=== PATIENT | female | born 1965 | race Two or more races ===

== ENCOUNTER 2022-02-05 07:01 | Outpatient (CLI) | payer OTHER ==
[~2022-02-05] VITALS: Ht 157.5 cm; Wt 68.9 kg
== END 2022-02-05 07:04 | disposition home or self-care (01) ==
LOC: LAB 07:01
PROVIDERS: ATTEND Orthopaedic Surgery
DX: D64.9 Anemia, unspecified (principal); E88.9 Metabolic disorder, unspecified; D68.8 Other specified coagulation defects; N39.0 Urinary tract infection, site not specified; E11.9 Type 2 diabetes mellitus without complications; Z76.89 Persons encountering health services in other specified circumstances; I10 Essential (primary) hypertension

== ENCOUNTER 2022-02-14 11:30 | Inpatient (IN) | payer OTHER ==
[~2022-02-14] VITALS: Ht 157.5 cm; Wt 69.4 kg
[2022-02-14] MEDS ORDERED: LOSARTAN-HCTZ1 EAC2 PO (14:56)
[2022-02-14] MEDS ORDERED: SYNTHROID112 MCG PO (14:56)
[2022-02-20] MEDS ORDERED: ROSUVASTATIN CAL5 MG (08:29)
[2022-02-20] MEDS ORDERED: XARELTO10 M1 (08:29)
[2022-02-20] MEDS ORDERED: GABAPENTIN100 M2 (08:29)
[2022-02-20] MEDS ORDERED: CELECOXIB200 MG (08:29)
== END 2022-02-23 14:50 | DRG 470 ==
LOC: SURH 02-19 07:30 → SURG 02-20 06:00 → O/R 02-20 06:00 → SURG 02-20 19:56
PROVIDERS: Orthopaedic Surgery; ADMIT Internal Medicine; ATTEND Internal Medicine
PROC: 0SRC0J9 Replacement of Right Knee Joint with Synthetic Substitute, Cemented, Open Approach (ICD-10-PCS; principal; 2022-02-20 07:00)
PROC: 30233N1 Transfusion of Nonautologous Red Blood Cells into Peripheral Vein, Percutaneous Approach (ICD-10-PCS; 2022-02-22)
DX: M17.11 Unilateral primary osteoarthritis, right knee (principal); D62 Acute posthemorrhagic anemia; I10 Essential (primary) hypertension; E03.9 Hypothyroidism, unspecified; Z96.651 Presence of right artificial knee joint; Z20.822 Contact with and (suspected) exposure to COVID-19

== ENCOUNTER 2022-12-03 06:33 | Outpatient (CLI) | payer OTHER ==
[~2022-12-03 06:33] MED LIST: CELECOXIB200 MG; GABAPENTIN100 M2; LOSARTAN-HCTZ1 EAC2 PO; ROSUVASTATIN CAL5 MG; SYNTHROID112 MCG PO; XARELTO10 M1
[2022-12-03 08:07] LABS: HEMATOCRIT 38.2 % (36.0-45.00); HEMOGLOBIN 12.6 g/dL (12.0-15.00); MEAN CELL VOLUME 86.2 fL (80.00-100.00); MEAN CORPUSCULAR HEMOGLOBIN 28.5 pg (27.00-32.0); MEAN CORPUSCULAR HGB CONC 33.1 g/dl (32.0-36.0); PLATELET COUNT 208 K/uL (150-450); RED BLOOD COUNT 4.43 M/uL (4.00-6.00); RED CELL DISTRIBUTION WIDTH 13.7 % (11.5-14.5)
== END 2022-12-03 06:34 | disposition home or self-care (01) ==
LOC: LAB 06:33
PROVIDERS: ATTEND Orthopaedic Surgery
DX: D64.89 Other specified anemias (principal); E88.89 Other specified metabolic disorders; D68.8 Other specified coagulation defects; N39.0 Urinary tract infection, site not specified; A49.02 Methicillin resistant Staphylococcus aureus infection, unspecified site; E11.9 Type 2 diabetes mellitus without complications; I49.9 Cardiac arrhythmia, unspecified; I10 Essential (primary) hypertension; Z76.89 Persons encountering health services in other specified circumstances

== ENCOUNTER 2022-12-12 12:15 | Inpatient (IN) | payer OTHER ==
[~2022-12-12] VITALS: Ht 157.5 cm; Wt 67.1 kg
[2022-12-17] MEDS ORDERED: LOSARTAN POTAS100 MG (07:46)
[2022-12-17] MEDS ORDERED: METFORMIN HCL500 M4 (07:46)
[2022-12-17] MEDS ORDERED: MICRO-K 1010 MEQ (07:46)
[2022-12-17] MEDS ORDERED: SYNTHROID100 MCG (07:46)
[2022-12-18 07:37] LABS: HEMATOCRIT 32.3 % (36.0-45.00); MEAN CELL VOLUME 86.9 fL (80.00-100.00); MEAN CORPUSCULAR HEMOGLOBIN 28.2 pg (27.00-32.0); MEAN CORPUSCULAR HGB CONC 32.5 g/dl (32.0-36.0); PLATELET COUNT 182 K/uL (150-450); RED BLOOD COUNT 3.72 M/uL (4.00-6.00)
[2022-12-18 07:40] LABS: HEMOGLOBIN 10.5 g/dL (12.0-15.00)
[2022-12-19 08:09] LABS: HEMATOCRIT 28.7 % (36.0-45.00); HEMOGLOBIN 10.1 g/dL (12.0-15.00); MEAN CORPUSCULAR HGB CONC 35.2 g/dl (32.0-36.0); PLATELET COUNT 186 K/uL (150-450); RED BLOOD COUNT 3.37 M/uL (4.00-6.00); RED CELL DISTRIBUTION WIDTH 14.5 % (11.5-14.5)
== END 2022-12-19 13:52 | DRG 470 ==
LOC: SURH 12-17 05:00 → O/R 12-17 05:00 → SURH 12-17 13:03 → SURG 12-18 12:15 → SURH 12-19 13:52
PROVIDERS: ADMIT Orthopaedic Surgery; ATTEND Orthopaedic Surgery
PROC: 0SRD0J9 Replacement of Left Knee Joint with Synthetic Substitute, Cemented, Open Approach (ICD-10-PCS; principal; 2022-12-17 13:45)
DX: M17.12 Unilateral primary osteoarthritis, left knee (principal); I10 Essential (primary) hypertension; E03.9 Hypothyroidism, unspecified; Z20.822 Contact with and (suspected) exposure to COVID-19